=== PATIENT | female | born 1980 | race Two or more races ===

== ENCOUNTER → 2024-07-01 | Outpatient (CLI) | payer MEDICARE, MEDICAID, SELFPAY ==
--- NOTE | 2024-07-01 14:45 | XR_ITS ---
Examination: Screening digital mammography, bilateral Computer aided detection 3-D breast Tomosynthesis, bilateral Date and time of exam: July 01, 2024 1504 hours Compared to mammograms dating to September 16, 2021 Indication: Screening Technique: Nonmagnified MLO, CC views of the breasts to been obtained, reconstructed from 3-D Tomosynthesis images. R2 computer aided detection program utilized for evaluation of suspicious masses and/or abnormal calcifications. 3-D Tomosynthesis images obtained. Findings: The breasts are heterogeneously dense, which may obscure small masses Stable nodule with breast biopsy marker upper outer right breast Breast biopsy marker retroareolar region left breast No interval suspicious masses Impression: BI-RADS Category 0: Incomplete: Need additional imaging evaluation Follow-up bilateral breast sonography is needed to compare with the December 28, 2022 exam
== END | disposition home or self-care (01) ==
LOC: CDIM 14:54
PROVIDERS: Referring Provider Registered Nurse Community Health; Visit Provider Registered Nurse Community Health
DX: Z12.31 Encounter for screening mammogram for malignant neoplasm of breast (principal); R92.8 Other abnormal and inconclusive findings on diagnostic imaging of breast
CPT/HCPCS: 77063; 77067

== ENCOUNTER → 2024-08-12 | Outpatient (CLI) | payer MEDICARE, MEDICAID, SELFPAY ==
--- NOTE | 2024-08-12 13:30 | XR_ITS ---
Examination: Breast ultrasound complete, bilateral Date and time of exam: August 12, 2024 1355 hours INDICATIONS: History of biopsied BI-RADS 4 suspicious nodule 9:00 position right breast and BI-RADS 4 suspicious nodule retroareolar region left breast Technique: Real-time grayscale ultrasonographic imaging bilateral breasts, including all 4 quadrants as well as nipple retroareolar and axillary regions. Findings: Sonographic images right breast 11:00 nodule with indistinct margins 16 x 16 mm with shadowing Sonographic images left breast Retroareolar nodule circumscribed 13 x 14 mm IMPRESSION: BI-RADS Category 3: Probably benign findings Recommend continued 3-6 month follow-up bilateral breast sonography to document stability of nodules described above
== END | disposition home or self-care (01) ==
PROVIDERS: PCP Registered Nurse Community Health; Referring Provider Registered Nurse Community Health; Visit Provider Registered Nurse Community Health
DX: N63.11 Unspecified lump in the right breast, upper outer quadrant (principal); N63.42 Unspecified lump in left breast, subareolar
CPT/HCPCS: 76641

== ENCOUNTER → 2024-11-18 | Outpatient (CLI) | payer MEDICARE, MEDICAID, SELFPAY ==
--- NOTE | 2024-11-18 15:15 | XR_ITS ---
Examination: Breast ultrasound complete, bilateral Date and time of exam: November 18, 2024, 1455 hours INDICATIONS: Breast sonography August 12, 2024 right breast 11:00 nodule 16 x 16 mm, left breast retroareolar nodule 13 x 14 mm Technique: Real-time grayscale ultrasonographic imaging bilateral breasts, including all 4 quadrants as well as nipple retroareolar and axillary regions. Findings: Sonographic images right breast 10:00 nodule with breast biopsy marker 7 x 7 x 8 mm, indistinct margins Sonographic images left breast Retroareolar nodule lobular margins 13 x 12 mm with breast biopsy marker IMPRESSION: BI-RADS Category 3: Probably benign findings Continued 6 month bilateral breast sonography follow-up is needed to document stability of nodules described above
== END | disposition home or self-care (01) ==
PROVIDERS: PCP Registered Nurse Community Health; Referring Provider Registered Nurse Community Health; Visit Provider Registered Nurse Community Health
DX: N63.42 Unspecified lump in left breast, subareolar (principal); N63.11 Unspecified lump in the right breast, upper outer quadrant
CPT/HCPCS: 76641